=== PATIENT | female | born 1965 | race Caucasian/White ===

== ENCOUNTER 2017-01-03 17:02 | Emergency (ER) | payer SELFPAY | END 2017-01-03 22:05 | disposition short-term general hospital (02) | LOC: ER 17:02 | DX: A41.9 Sepsis, unspecified organism (principal); I95.9 Hypotension, unspecified; F15.10 Other stimulant abuse, uncomplicated; F17.210 Nicotine dependence, cigarettes, uncomplicated; Z79.899 Other long term (current) drug therapy | CPT/HCPCS: 36415; 51702; 80307; 96361; 96365; 96366; 96368; G0480; J3370 ==